=== PATIENT | male | born 1965 | race Caucasian/White ===

== ENCOUNTER → 2018-11-08 | Outpatient (CLI) | payer OTHER ==
[~2018-11-08] MED LIST: FLEXERIL PO; IBUPROFEN 800800 M1 PO; MOBIC15 MG PO; NEXIUM 40 MG CA40 M1; NEXIUM40 MG PO; ULTRAM 50MG TAB50 MG PO; XANAX 0.5 MG0.5 MG PO; XANAX1 MG
== END | disposition home or self-care (01) ==
LOC: M.PC 12:10
DX: M54.12 Radiculopathy, cervical region (principal); Z98.890 Other specified postprocedural states; Z79.899 Other long term (current) drug therapy

== ENCOUNTER → 2018-12-13 | Outpatient (CLI) | payer OTHER ==
--- NOTE | ~2018-12-13 | PAINCON ---
[address] [address] PAIN MANAGEMENT CONSULTATION Name: IRENE CHRISTIAN JR [id number] Admission: 12/13/18 Attend Phys: Shayy Manzo MD Discharge: Date of : 61 Report #: [id number] THIS REPORT FOR: //name// CC: Marcelo Manzo DATE OF SERVICE: 12/13/2018 CHIEF COMPLAINT: Lumbar radicular pain. FOLLOWUP HISTORY: The patient is a 53-year-old gentleman who has been seen in the Pain Clinic in the past. He has had some problems with cervical radiculopathy. He has undergone a cervical epidural steroid injection. He has gleaned benefits from that. Notes that his pain has improved. Continues to have pain and discomfort if he lifts his hand above his head, involves his left shoulder as well. Overall, he feels he is about 50%-75% improved after the last injection. Notes that the pain and discomfort in his index finger is less. He has returned today with the desire to undergo a cervical epidural steroid injection. He rates his pain as a 2-3/10. Notes that he is able to work with less discomfort. 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 ALLERGIES: No known drug allergies. CURRENT MEDICATIONS: Mobic, meloxicam 15 mg, Flexeril 10 mg t.i.d., Nexium 40 mg, clonazepam 1.5 mg daily. PAIN CLINIC ASSESSMENT/PQRS: 1. History of osteoarthritis. The patient has some arthritic changes in his low back. 2. The patient is not being treated for rheumatoid arthritis. 3. Height 6 feet 1 inch, weight 214 pounds, BMI is 28.3. 4. Vital signs: Blood pressure 133/87, heart rate 79, respiratory rate 16, room air saturation 93%, temperature 98.9. Pain intensity is 0-10. 5. Fall history: The patient has not fallen in the last 3 months. 6. Blood thinner. The patient is not on a blood thinning medication. 7. Hypertension. The patient is not being treated for hypertension. 8. Opioids. Greater than 6 weeks. The patient is not on an opioid regimen. 9. Risk assessment tool, low for opioid use. 10. Functional assessment tool. 11. Recreational drug use. The patient denies use of recreational drugs. 12. Tobacco: The patient denies use of tobacco. 13. Alcohol: The patient drinks 1-2 alcoholic beverages daily. PHYSICAL EXAMINATION: GENERAL: The patient is well-developed, well-nourished [place] [address] PAIN MANAGEMENT CONSULTATION Name: IRENE CHRISTIAN JR Room: [facility]#: [id number] Admission: 12/13/18 Attend Phys: Shayy Manzo MD Discharge: Date of : 61 Report #: [id number] stated age. He is alert and oriented x 3. His affect is appropriate. Speech is fluent. HEENT: Normocephalic, atraumatic. Extraocular eye muscles intact. Sclerae nonicteric. Mucous membranes are moist. The patient has some pain and discomfort involving the left shoulder and neck area. Lifting his hand above his neck cause some increased discomfort. Notes that the pain radiating down into his left hand is better. He is "able to feel his fingers at this point. The patient without significant scoliosis, kyphosis or lordosis. Lower extremity muscle strength is judged to be 5/5 for the major muscle groups in the lower extremity. HEART: Regular rate. S1, S2. LUNGS: Clear to auscultation without rales or rhonchi. IMPRESSION: 1. Cervical radiculopathy involving the left arm with numbness in the left arm/improving. 2. History of lumbar radiculopathy, stable at this juncture. 3. History of gastrointestinal complaints, stable. RECOMMENDATIONS: We discussed treatment options with the patient. At this juncture, he will undergo another cervical epidural steroid injection. He has gleaned greater than 50% improvement after the last injection. Risks and benefits of the procedure were again reviewed. They include but are not limited to infection, worsening pain, no improvement in pain, nerve damage with paralysis and the patient elects to proceed. PROCEDURE NOTE: The patient was placed in the prone position. A pillow was placed under her shoulders to bolster improved positioning. Fluoroscopy using anterior, posterior as well as lateral viewing were implemented. A 25-gauge needle was then used to advance in the C7-T1 interspace. A 17-gauge Tuohy with loss of resistance technique using a left lateral approach was undertaken. A total of 120 mg triamcinolone was injected. The patient tolerated the procedure well. A total of 15 seconds fluoroscopy time was used. The patient's pain decreased at the time of discharge. He will follow up in the future if needed. We would like to thank you for letting us participate in his care. We hope he continues to improve. By: [id number]. Doug Manzo MD /nt
== END | disposition home or self-care (01) ==
LOC: M.PC 05:50
DX: M54.12 Radiculopathy, cervical region (principal); G89.29 Other chronic pain; Z87.19 Personal history of other diseases of the digestive system; Z87.39 Personal history of other diseases of the musculoskeletal system and connective tissue; Z98.890 Other specified postprocedural states; Z79.899 Other long term (current) drug therapy

== ENCOUNTER → 2019-03-23 | Outpatient (CLI) | payer OTHER ==
--- NOTE | ~2019-03-23 | PAINCON ---
[address] [address] PAIN MANAGEMENT CONSULTATION Name: IRENE CHRISTIAN JR Room: [facility] KRYSTIAN EfraTed#: [id number] Admission: 03/23/19 Attend Phys: Shayy Manzo MD Discharge: Date of : 61 Report #: [id number] THIS REPORT FOR: //name// CC: Marcelo Manzo DATE OF SERVICE: 03/23/2019 CHIEF COMPLAINT: "Neck pain is better, but my low back pain is worse." HISTORY: The patient is a 54-year-old gentleman who has been seen and followed in the Pain Clinic. As you recall, he suffers from neck pain and neck discomfort. At this juncture, he is having pain, which is most problematic involving his back. He had a pool place built last year. He wanted to build a deck around the pool. Because of the weather, it has been quite problematic. He found an opportunity this year to start on the deck. He did build the deck. He states that he had to sink the hose down 3 feet with lots of digging. This exacerbated his back. He noticed that he pulled his back muscles and has been having pain since that point. He and the family went to [place]. They had a vacation, which they had been contemplating for a year. He drove his trailer to [place]. He states that it was a 17-hour drive. His left his back more problematic. After arriving in [place], he called a chiropractor. He went to see the chiropractor. The patient was provided treatment by the chiropractor. He states that it did decrease his pain. He did reasonably well for about a week. Now, he has returned home. He notes that the pain is a 6/10. He feels that an epidural steroid injection will be helpful. He has had an epidural steroid injection some years ago, in 2016 and gleaned good benefit from that. He feels that another injection at this juncture would be the right thing to do. He has continued to use a TENS unit p.r.n. ALLERGIES: No known drug allergies. CURRENT MEDICATIONS: ____. The patient did take Flexeril in the past, does not take it at this juncture. Nexium, clonazepam 1.5 mg daily. PAIN CLINIC ASSESSMENT/PQRS: 1. The patient has a history of osteoarthritis. It involves his low back. The patient is not being treated for rheumatoid arthritis. 2. Height 6 feet 1 inch, weight 212 pounds, BMI is 28.8. 3. Vital signs: Blood pressure 126/83, heart rate 76, respiratory rate 16, room air saturation is 94%, temperature 98.2. 4. Pain intensity: 6/10. 5. Fall history: The patient has not fallen in the last 3 months. 6. Blood thinner: The patient is not on a blood thinning medication. 7. Hypertension: The patient is not being treated for hypertension. 8. Opioids greater than 6 weeks: The patient [place] [address] PAIN MANAGEMENT CONSULTATION Name: IRENE CHRISTIAN JR Room: [facility]#: [id number] Admission: 03/23/19 Attend Phys: Shayy Manzo MD Discharge: Date of : 61 Report #: [id number] regimen. 9. Risk assessment tool: Low for opioid use. 10. Functional assessment tool. 11. Recreational drug use: The patient denies use of recreational drugs. 12. Tobacco: The patient denies use of tobacco. 13. Alcohol: The patient drinks 1-2 alcoholic beverages on occasion. PHYSICAL EXAMINATION: GENERAL: The patient is a well-developed, well-nourished white male. He appears his stated age. He is alert and oriented x 3. His affect is appropriate. Speech is fluent. HEENT: Normocephalic, atraumatic. Extraocular eye muscles intact. Sclerae nonicteric. Mucous membranes are moist. NECK: Without adenopathy or JVD. NEUROLOGIC/MUSCULOSKELETAL: The patient is not having much pain or discomfort in his neck or in the shoulder area. He is without significant scoliosis, kyphosis, or lordosis. He has pain and discomfort in the lower portion of his back. He notes that the pain on the right side is in the L4-L5 dermatomal distribution. He notes pain down his buttocks to the posterior portion of his leg. He also has a trigger point area in the right posterior superior iliac spine area, near the gluteus beth. IMPRESSION: Lumbar radiculopathy. RECOMMENDATIONS: We discussed treatment options with the patient. Risks and benefits of an epidural steroid injection were discussed. They include but are not limited to infection, worsening of pain, no improvement in pain, trauma, nerve damage, and the patient elects to proceed. PROCEDURE NOTE: The patient was taken to the procedure area. He was assisted in getting on the examination table. His back was sterilely prepped with a Betadine solution. A 0.25% bupivacaine was infiltrated at the right L5-S1 area. A 25-gauge needle was used to anesthetize the area. A 17-gauge Tuohy with loss of resistance technique was used to gain access to the epidural space. Fluoroscopy using anterior and posterior viewing were implemented. After appropriate placement, aspiration was negative. A total of 80 mg Depo-Medrol, 40 mg triamcinolone and 2 mL of 0.25% bupivacaine was injected. The patient tolerated the procedure well. There were no complications. He remained in the Pain Clinic for appropriate amount of time. Twelve seconds of fluoroscopy time was used. The patient will follow [place] [address] PAIN MANAGEMENT CONSULTATION Name: IRENE CHRISTIAN JR Room: [facility]#: [id number] Admission: 03/23/19 Attend Phys: Shayy Manzo MD Discharge: Date of : 61 Report #: [id number] We would like to thank you for letting us participate in his care. We hope he continues to improve. By: [id number] Manzo MD /liz
== END | disposition home or self-care (01) ==
LOC: M.PC 03-14 01:42
DX: M54.16 Radiculopathy, lumbar region (principal); G89.29 Other chronic pain; Z79.01 Long term (current) use of anticoagulants; Z79.899 Other long term (current) drug therapy; Z98.890 Other specified postprocedural states

== ENCOUNTER → 2020-03-05 | Outpatient (CLI) | payer OTHER | END | disposition home or self-care (01) | LOC: M.PC 11:30 | DX: M54.12 Radiculopathy, cervical region (principal); G89.29 Other chronic pain ==

== ENCOUNTER → 2020-10-15 | Outpatient (CLI) | payer OTHER | END | disposition home or self-care (01) | LOC: M.PC 09:00 | PROVIDERS: ATTEND Anesthesiology Pain Medicine | DX: M54.16 Radiculopathy, lumbar region (principal); G89.29 Other chronic pain; F41.9 Anxiety disorder, unspecified; K21.9 Gastro-esophageal reflux disease without esophagitis; F17.210 Nicotine dependence, cigarettes, uncomplicated; Z98.890 Other specified postprocedural states; Z79.899 Other long term (current) drug therapy ==

== ENCOUNTER → 2020-12-03 | Outpatient (CLI) | payer OTHER | END | disposition home or self-care (01) | LOC: M.PC 10:15 | PROVIDERS: ATTEND Anesthesiology Pain Medicine | DX: M54.16 Radiculopathy, lumbar region (principal); G89.29 Other chronic pain; M54.12 Radiculopathy, cervical region; F41.9 Anxiety disorder, unspecified; K21.9 Gastro-esophageal reflux disease without esophagitis; F17.210 Nicotine dependence, cigarettes, uncomplicated; Z98.890 Other specified postprocedural states; Z79.899 Other long term (current) drug therapy; Z87.19 Personal history of other diseases of the digestive system ==

== ENCOUNTER 2021-02-07 12:25 | Emergency (ER) | payer OTHER ==
[~2021-02-07] VITALS: Ht 182.9 cm; Wt 99.8 kg
[2021-02-07] MEDS ORDERED: FLONASE 0.05%50 MCG NARES (12:31)
[2021-02-07] MEDS ORDERED: DINO-LIFE WITH1 EACH PO (12:31)
[2021-02-07 14:10] VITALS: BP 145/65
== END 2021-02-07 14:11 | disposition home or self-care (01) ==
LOC: M.ERS 12:25
DX: S61.012A Laceration without foreign body of left thumb without damage to nail, initial encounter (principal); K21.9 Gastro-esophageal reflux disease without esophagitis; W26.0XXA Contact with knife, initial encounter; Y93.89 Activity, other specified; Y92.89 Other specified places as the place of occurrence of the external cause; Y99.8 Other external cause status

== ENCOUNTER → 2021-10-21 | Outpatient (CLI) | payer OTHER ==
[~2021-10-21] MED LIST changes: +DINO-LIFE WITH1 EACH PO; +FLONASE 0.05%50 MCG NARES
== END | disposition home or self-care (01) ==
LOC: M.PC 10:09
PROVIDERS: ATTEND Anesthesiology Pain Medicine
DX: M54.16 Radiculopathy, lumbar region (principal); G89.29 Other chronic pain; K21.9 Gastro-esophageal reflux disease without esophagitis; F41.9 Anxiety disorder, unspecified; Z98.890 Other specified postprocedural states; Z79.899 Other long term (current) drug therapy